=== PATIENT | female | born 1970 | race African-American/Black ===

== ENCOUNTER 2019-07-24 15:11 | Emergency (ER) | payer OTHER, BC ==
[~2019-07-24] VITALS: Ht 165.1 cm; Wt 96.6 kg
[2019-07-24 16:05] VITALS: BP 156/91
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
[2019-07-24] MEDS ORDERED: TDAP [DIPH/PERTUSSIS/TET] 0.5 ML VIAL IM ONE ×2 (17:21→17:30)
[2019-07-24] MEDS ORDERED: IBUPROFEN 600 MG TABLET PO ONE ×2 (17:21→17:30)
[2019-07-24] MEDS ORDERED: ACETAMINOPHEN ES 500 MG TABLET ONE (17:25)
--- NOTE | 2019-07-24 17:32 | NUR ---
DR. RIVAS VERBAL ORDER FOR TYLENOL 1GM PO. PT JUST NOTIFIED US THAT SHE IS ALLERGIC TO MOTRIN.
--- NOTE | 2019-07-24 17:56 | NUR ---
Patient discharged to home in stable condition. Written and verbal after care instructions given. Patient verbalizes understanding of instruction. PT REC'D AN EXCUSE FOR WORK. PT AMBULATED OUT WITH A STEADY GAIT. PT'S SISTER IS DRIVING PT HOME.
[2019-07-24] MEDS ORDERED: ACETAMINOPHEN ES 500 MG TABLET PO ONE (18:00)
== END 2019-07-24 17:57 | disposition home or self-care (01) ==
LOC: ER 15:14
DX: S39.012A Strain of muscle, fascia and tendon of lower back, initial encounter (principal); S20.211A Contusion of right front wall of thorax, initial encounter; S60.221A Contusion of right hand, initial encounter; Z88.6 Allergy status to analgesic agent; Z60.2 Problems related to living alone; V49.49XA Driver injured in collision with other motor vehicles in traffic accident, initial encounter; Y93.89 Activity, other specified; Y92.413 State road as the place of occurrence of the external cause; Y99.8 Other external cause status
CPT/HCPCS: 71045-TC; 72110-TC; 73130-TC; 90715